=== PATIENT | female | born 1995 | race Caucasian/White ===

== ENCOUNTER 2018-06-22 11:34 | Emergency (ER) | payer MEDICAID ==
[2018-06-22 11:38] VITALS: BP 28/78
--- NOTE | 2018-06-22 11:45 | ER Report ---
History and Physical Time Seen By MD: 11:45 HPI/ROS CHIEF COMPLAINT: Vaginal itching, discharge, pain HISTORY OF PRESENT ILLNESS: 22-year-old female patient presents to emergency room with complaint of vaginal itching, discharge and pain. Patient states that she has had this for the last 2 days. Patient states that she has felt a little feverish. She denies any nausea, vomiting or diarrhea. Patient states that she feels that her vagina is very swollen, painful. She states that she believes that there may be some open sores. Patient has tried Monistat for this with no improvement. She states that she felt there may have been a very slight improvement. REVIEW OF SYSTEMS: Respiratory: No cough, no dyspnea. Cardiovascular: No chest pain, no palpitations. Gastrointestinal: No vomiting, no abdominal pain. Musculoskeletal: No back pain. Allergies: Coded Allergies: No Known Drug Allergies (Unverified , 06/22/18) Home Meds Active Scripts Valacyclovir Hcl (VALTREX) 1,000 Mg Tablet, 1000 MG PO TID, #30 TAB 1 Refill Prov:WANG ESTRADA 06/22/18 Past Medical/Surgical History Patient has no pertinent medical history. Patient has a surgical history of nasal surgery, dental surgery, tonsillectomy. Reviewed Nurses Notes: Yes Constitutional Vital Sign - Last 24 Hours 06/22/18 11:38 Temp 97.7 Pulse 67 Resp 20 B/P (MAP) 28/78 Pulse Ox 95 O2 Delivery Room Air Physical Exam General Appearance: The patient is alert, has no immediate need for airway protection and no current signs of toxicity. Respiratory: Chest is non tender, lungs are clear to auscultation. Cardiac: regular rate and rhythm Gastrointestinal: Abdomen is soft and non tender, no masses, bowel sounds normal. Musculoskeletal: Neck: Neck is supple and non tender. Extremities have full range of motion and are non tender. Skin: No rashes or lesions. DIFFERENTIAL DIAGNOSIS: After history and physical exam differential diagnosis was considered for yeast infection, bacterial vaginosis, STI, herpetic lesions. Medical Decision Making Data Points Laboratory Hematology Test 06/22/18 12:07 Chemistry Test 06/22/18 12:07 Microbiology Microbiology Date/Time Source Procedure Growth Status 06/22/18 12:07 Cervical Wet Prep - Final Complete ED Course/Re-evaluation ED Course Patient was admitted to exam room, history and physical were obtained. Differential diagnoses were considered. On examination lungs are clear, heart is regular, abdomen is soft nontender. A pelvic exam was done as described below. Patient did have multiple yellow lesions on erythematous bases. She is extremely tender throughout. A wet prep was obtained as well as a GC and chlamydia. We will contact her with results of the GC and chlamydia those are positive. The wet prep was completely negative. I discussed with the patient that it appears that she has a primary onset of genital herpes. We will go ahead and start her on Valtrex. Patient was given some endocrine to help with the discomfort. 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 She is return to emergency room if condition worsens. Patient verbalized understanding and agreement with plan. Pelvic exam: The vulva patient had multiple yellow lesions on erythematous base consistent with herpes infection. The vagina did not have significant discharge. The cervix was closed no bleeding and no purulent drainage. The uterus was normal size and non tender. The adnexa had no masses and no tenderness. The exam was performed with a hand glove cleaner. Decision to Disposition Date: Jun 22, 2018 Decision to Disposition Time: 12:38 Depart Departure Latest Vital Signs Vital Signs Date Time Temp Pulse Resp B/P (MAP) Pulse Ox O2 Delivery O2 Flow Rate FiO2 06/22/18 11:38 97.7 67 20 28/78 95 Room Air Impression: Primary Impression: Genital herpes Condition: Improved Disposition: HOME OR SELF-CARE New Scripts Valacyclovir Hcl (VALTREX) 1,000 Mg Tablet 1000 MG PO TID, #30 TAB 1 Refill Prov: WANG ESTRADA 06/22/18 Patient Instructions: Genital Herpes Simplex (ED) Additional Instructions: Limit activity by pain. Increase fluid intake. Take Tylenol or Ibuprofen as needed for pain. Return to the ER if condition worsens. Follow up with your primary care provider in the next week. Use condoms with intercourse. Problem Qualifiers Primary Impression: Genital herpes Herpes simplex infection site: vulvovaginitis Qualified Codes: A60.04 - Herpesviral vulvovaginitis WANG ESTRADA Jun 22, 2018 11:45
[2018-06-22] MEDS ORDERED: valACYclovir HCL 500 MG TAB PO ONE (12:35)
[2018-06-22] MEDS ORDERED: LIDOCAINE/PRILOCAINE 5 GM TUBE TP ONE (12:35)
[2018-06-22] MEDS ORDERED: VALA100062 PO (12:37)
== END 2018-06-22 12:43 | disposition home or self-care (01) ==
LOC: ER 11:38
DX: A60.04 Herpesviral vulvovaginitis (principal)
CPT/HCPCS: 87210; 87491; 87591; 99283